=== PATIENT | female | born 1975 | race African-American/Black ===

== ENCOUNTER 2018-04-19 12:53 | Emergency (ER) | payer OTHER ==
[2018-04-19 13:35] LABS: URINE HCG POC HCG NEGATIVE (Negative)
[2018-04-19 13:43] LABS: BILIRUBIN,URINE NEGATIVE (NEG); CLARITY,URINE CLEAR; COLOR,URINE YELLOW; GLUCOSE,URINE NEGATIVE (NEG); NITRITE,URINE NEGATIVE (NEG); PH,URINE 6.5; PROTEIN,URINE NEGATIVE (NEG-TRACE)
[2018-04-19 13:55] LABS: BACTERIA,URINE 0 /HPF (0-FEW); RBC,URINE 0 /HPF (0-2); SQUAMOUS EPITHELIAL CELL,UR FEW /LPF; WBC,URINE 0 /HPF (0-4)
[2018-04-19] MEDS ORDERED: CONTRAST GIVEN. MC (14:30)
[2018-04-19] MEDS: IOHEXOL 300 MG/ML 100ML VIAL. IV (14:30)
[2018-04-19 14:48] LABS: ADD MAN DIFF? NO
[2018-04-19 14:52] LABS: BASO % 1 % (0-3); EOS # 0.1 x10^3/uL (0.0-0.7); EOS % 2 % (0-3); HEMOGLOBIN 13.5 g/dL (12.0-15.5); LYMPH # 2.3 x10^3/uL (1.0-4.8); LYMPH % 26 % (24-48); MEAN CORPUSCULAR HEMOGLOBIN 28 pg (25-35); MEAN CORPUSCULAR HGB CONC 34 g/dL (31-37); MEAN CORPUSCULAR VOLUME 84 fL (79-100); MONO # 0.6 x10^3/uL (0.0-1.1); MONO % 7 % (0-9); NEUT # 5.8 x10^3uL (1.8-7.7); NEUT % 65 % (31-73); PLATELET COUNT 261 x10^3/uL (140-400); RED BLOOD COUNT 4.78 x10^6/uL (3.50-5.40); RED CELL DISTRIBUTION WIDTH 14.6 % (11.5-14.5); WHITE BLOOD COUNT 8.9 x10^3/uL (4.0-11.0)
[2018-04-19 15:00] LABS: ANION GAP 6 (6-14); BLOOD UREA NITROGEN 14 mg/dL (7-20); BUN/CREATININE RATIO 18 (6-20); CALCIUM 9.2 mg/dL (8.5-10.1); CARBON DIOXIDE 26 mmol/L (21-32); CHLORIDE 106 mmol/L (98-107); CREATININE 0.8 mg/dL (0.6-1.0); GFR 95.2; GLUCOSE 94 mg/dL (70-99); SODIUM 138 mmol/L (136-145)
[2018-04-19 15:06] LABS: ALBUMIN 3.6 g/dL (3.4-5.0); ALBUMIN/GLOBULIN RATIO 0.8 (1.0-1.7); ALK PHOS 68 U/L (46-116); ALT (SGPT) 27 U/L (14-59); AST (SGOT) 13 U/L (15-37); LIPASE 136 U/L (73-393); TOTAL BILIRUBIN 0.3 mg/dL (0.2-1.0)
[2018-04-19] MEDS: ACETAMINOPHEN 500 MG TABLET PO (16:52)
[2018-04-21 15:11] LABS: CHLAMYDIA PROBE Negative (Negative); GC PROBE Negative (Negative)
== END 2018-04-19 17:23 | disposition home or self-care (01) ==
LOC: ER 17:23
DX: R10.31 Right lower quadrant pain (principal)
CPT/HCPCS: 36415; 74177; 76830; 76856; 80053; 81001; 81025; 83690; 85025; 87491; 87591; 99285-25; Q0111; Q9967